=== PATIENT | female | born 1940 | race Caucasian/White ===

== ENCOUNTER → 2016-11-12 | Outpatient (CLI) | payer MEDICARE, OTHER | LOC: GMA 15:01 | PROVIDERS: ATTEND Nurse Practitioner Acute Care | DX: R53.1 Weakness (principal); E53.8 Deficiency of other specified B group vitamins; E55.9 Vitamin D deficiency, unspecified; R41.81 Age-related cognitive decline ==

== ENCOUNTER → 2016-12-16 | Outpatient (CLI) | payer MEDICARE, OTHER | END | disposition home or self-care (01) | LOC: LAB.O 14:02 | PROVIDERS: ATTEND Nurse Practitioner Family | DX: E03.9 Hypothyroidism, unspecified (principal); D51.0 Vitamin B12 deficiency anemia due to intrinsic factor deficiency; R41.89 Other symptoms and signs involving cognitive functions and awareness; Z13.21 Encounter for screening for nutritional disorder; M81.0 Age-related osteoporosis without current pathological fracture; E55.9 Vitamin D deficiency, unspecified ==